=== PATIENT | male | born 1945 | race Caucasian/White ===

== ENCOUNTER 2021-05-08 17:48 | Inpatient (IN) ==
[2021-05-08] MEDS ORDERED: 0.9 % Sodium Chloride 1,000 ML IVC ONE (18:20)
[2021-05-08] MEDS ORDERED: Isovue-370 500 ML BOTTLE IVP ONE ×3 (18:21→18:28)
[2021-05-08] MEDS ORDERED: Ipratropium/Albuterol Neb 3 ML IH ONE (18:25)
[2021-05-08 18:29] LABS: Basophils % 0.1 %; Hematocrit 47.7 % (37.5-50.1); Hemoglobin 14.3 g/dL (12.9-16.9); Immature Granulocytes % 0.4 % (0-4); Lymphocytes # 0.7 K/mcL (0.6-4.6); Lymphocytes % 4.3 %; Mean Corpuscular Hemoglobin 31.4 pg (28.0-33.3); Mean Corpuscular Volume 104.8 fL (83.0-100.0); Mean Platelet Volume 10.9 fL (9.4-12.4); Monocytes # 1.1 K/mcL (0.0-1.3); Monocytes % 6.8 %; Neutrophils # 14.5 K/mcL (1.6-8.9); Nucleated Red Blood Cells 0.5 /100 WBC (0); Platelet Count 176 K/mcL (140-400); Red Blood Count 4.55 M/mcL (4.19-5.50); Red Cell Distribution Width 15.6 % (11.5-14.5); Segmented Neutrophils % 88.4 %; White Blood Count 16.4 K/mcL (4.3-11.1)
[2021-05-08] MEDS ORDERED: Ampicillin 2,000 MG in 0.9 % Sodium Chloride Mini Bag 100 ML IVPB ONE (18:29)
[2021-05-08] MEDS ORDERED: cefTRIAXone 2,000 MG in 0.9 % Sodium Chloride Mini Bag 100 ML IVPB ONE (18:29)
[2021-05-08] MEDS ORDERED: Acyclovir 600 MG in D5% in Water 250 ML IVPB ONE (18:30)
[2021-05-08 18:40] LABS: Prothrombin Time 11.3 Seconds (9.4-12.1)
[2021-05-08 18:42] LABS: Activated Partial Thrombo Time 27.5 Seconds (26.0-36.0)
[2021-05-08 18:52] LABS: Alanine Aminotransferase 51 Units/L (7-52); Albumin 4.3 g/dL (3.5-5.7); Albumin/Globulin Ratio 1.4 (1.1-2.2); Alkaline Phosphatase 97 Units/L (34-104); Aspartate Amino Transferase 52 Units/L (13-39); BUN/Creatinine Ratio 33 (6-26); Bilirubin,Direct 0.4 mg/dL (0.0-0.2); Bilirubin,Indirect 0.9 mg/dL (0.0-1.0); Bilirubin,Total 1.3 mg/dL (0.3-1.0); Blood Urea Nitrogen 104 mg/dL (8-23); Calcium 9.4 mg/dL (8.6-10.3); Carbon Dioxide 36 mEq/L (23-29); Chloride 97 mEq/L (98-107); Creatine Kinase 1727 Units/L (30-223); Globulin 3.1 g/dL (2.4-3.5); Glucose 155 mg/dL (70-105); Osmolality,Calculated 348 (280-300); Potassium 4.7 mEq/L (3.5-5.1); Sodium 151 mEq/L (136-145); Total Protein 7.4 g/dL (6.4-8.9); Troponin I 0.06 ng/mL (< 0.04); eGFR For African Americans 23 (> 60); eGFR For Non-African Americans 19 (> 60)
[2021-05-08 19:18] LABS: Amorphous Sediment,Urine Few per hpf (None-Few); Amphetamine Screen,Urine Negative ng/mL (Cutoff=1000); Bacteria,Urine Few per hpf (None-Few); Barbiturate Screen,Urine Negative ng/mL (Cutoff=200); Benzodiazepines Screen,Urine Negative ng/mL (Cutoff=200); Bilirubin,Urine Small (Negative); Blood,Urine Moderate (Negative); Cannabinoid Screen,Urine Negative ng/mL (Cutoff = 50); Clarity,Urine Turbid (Clear); Cocaine Screen,Urine Negative ng/mL (Cutoff= 300); Color,Urine Yellow (Yellow); Glucose,Urine (UA) Normal (Normal); Hyaline Casts,Urine Many per lpf (None Seen); Ketones,Urine Trace mg/dL (Negative); Leukocyte Esterase,Urine Large (Negative); Mucus,Urine Few per lpf (None-Few); Nitrite,Urine Negative (Negative); Opiate Screen,Urine Negative ng/mL (Cutoff=300); Phencyclidine Screen,Urine Negative ng/mL (Cutoff=25); Protein,Urine 30 mg/dL (Neg-Trace); Specific Gravity,Urine 1.017 (1.010-1.025); Squamous Epithelial Cell,Urine Few per hpf (None-Few); WBC,Urine 50-100 per hpf (0-3)
[2021-05-08 19:25] LABS: Thyroid Stimulating Hormone 2.118 mcIU/mL (0.340-5.600)
[2021-05-08 19:32] LABS: Ethanol < 10 mg/dL (Less than 10)
[2021-05-08 19:33] LABS: Influenza A PCR Negative (Negative); Influenza B PCR Negative (Negative); Resp. Syncytial Virus PCR Negative (Negative)
[2021-05-08 19:37] LABS: SARS-CoV-2 by PCR (In House) Negative (Negative)
[2021-05-08] MEDS ORDERED: 0.9 % Sodium Chloride 2,000 ML IV ONE (19:53)
[2021-05-08 20:02] LABS: Phosphorous 7.5 mg/dL (2.7-4.5)
[2021-05-08 21:10] LABS: ABG Base Excess 6 mEq/L (-2 to 3); ABG HCO3 36 mEq/L (21-27); ABG Oxygen Saturation 95 % (95-98); ABG PCO2 89 mmHg (35-45); ABG PH 7.22 pH Units (7.32-7.45); ABG PO2 92 mmHg (85-104); ABG TCO2 39 mEq/L (20-26)
[2021-05-08] MEDS ORDERED: Albuterol 2.5 MG/3 ML NEBULIZER IH ONE (21:26)
[2021-05-08] MEDS ORDERED: methylPREDNISolone 125 MG/2 ML VIAL IVP ONE (21:27)
[2021-05-08] MEDS ORDERED: Dexmedetomidine HCl 400 MCG/100 ML MLS IVC SCH (22:15)
[2021-05-08] MEDS ORDERED: Dexmedetomidine HCl 400 MCG/100 ML MLS IVC ONE (22:21)
[2021-05-08] MEDS ORDERED: 0.9 % Sodium Chloride 1,000 ML IV ONE (23:00)
[2021-05-09] MEDS ORDERED: Naloxone 0.4 MG/ML INJ IVP PRN (00:01)
[2021-05-09 00:11] LABS: ABG Base Excess 1 mEq/L (-2 to 3); ABG HCO3 34 mEq/L (21-27); ABG Oxygen Saturation 99 % (95-98); ABG PCO2 109 mmHg (35-45); ABG PO2 185 mmHg (85-104); ABG TCO2 37 mEq/L (20-26)
[2021-05-09] MEDS ORDERED: Perflutren Lipid Microsphere 1.3 ML in 0.9 % Sodium Chloride 8.7 ML IVP PRN (03:09)
[2021-05-09 05:19] LABS: Basophils % 0.2 %; Hematocrit 36.6 % (37.5-50.1); Hemoglobin 11.1 g/dL (12.9-16.9); Immature Granulocytes % 1.1 % (0-4); Immature Platelets 6.6 % (1.1-6.1); Lymphocytes # 1.1 K/mcL (0.6-4.6); Lymphocytes % 8.5 %; Mean Corpuscular HGB Conc 30.3 g/dL (31.6-35.5); Mean Corpuscular Hemoglobin 32.1 pg (28.0-33.3); Mean Corpuscular Volume 105.8 fL (83.0-100.0); Mean Platelet Volume 11.1 fL (9.4-12.4); Monocytes # 1.1 K/mcL (0.0-1.3); Neutrophils # 10.2 K/mcL (1.6-8.9); Platelet Count 132 K/mcL (140-400); Red Blood Count 3.46 M/mcL (4.19-5.50); Red Cell Distribution Width 15.6 % (11.5-14.5); Segmented Neutrophils % 81.2 %; White Blood Count 12.5 K/mcL (4.3-11.1)
[2021-05-09 05:25] LABS: Prothrombin Time 10.8 Seconds (9.4-12.1)
[2021-05-09 05:36] LABS: Acetaminophen < 10 mcg/mL (10-20); Salicylate < 2.5 mg/dL (15.0-30.0)
[2021-05-09 05:42] LABS: Albumin 3.2 g/dL (3.5-5.7); Albumin/Globulin Ratio 1.5 (1.1-2.2); Bilirubin,Total 0.7 mg/dL (0.3-1.0); Calcium 7.8 mg/dL (8.6-10.3); Globulin 2.2 g/dL (2.4-3.5); Magnesium 2.4 mg/dL (1.6-2.6); Phosphorous 5.6 mg/dL (2.7-4.5); Potassium 5.1 mEq/L (3.5-5.1); Total Protein 5.4 g/dL (6.4-8.9); Troponin I 0.05 ng/mL (< 0.04)
[2021-05-09 06:02] LABS: Folate 8.6 ng/mL (3.0-16.0)
[2021-05-09 06:05] LABS: Vitamin B12 > 1500 pg/mL (250-1100)
[2021-05-09] MEDS ORDERED: D5% in Water 1,000 ML IVC PRN (06:30)
[2021-05-09] MEDS ORDERED: *HR* Dextrose 50 % in Water (Syg) 50 ML SYRINGE IVP PRN (06:30)
[2021-05-09] MEDS ORDERED: Dextrose Gel 15 GM/37.5 ML TUBE PO PRN ×2 (06:30)
[2021-05-09] MEDS: D5% in Water 1,000 ML IVC SCH ×2 (06:55→13:38)
[2021-05-09] MEDS: Ampicillin 2,000 MG in 0.9 % Sodium Chloride Mini Bag 100 ML IVPB SCH ×4 (06:56→23:33)
[2021-05-09] MEDS ORDERED: Acyclovir 500 MG in D5% in Water 100 ML IVPB SCH (08:00)
[2021-05-09] MEDS: Ipratropium/Albuterol Neb 3 ML IH SCH ×6 (08:21→23:35)
[2021-05-09 08:54] LABS: ABG Base Excess 5 mEq/L (-2 to 3); ABG HCO3 32 mEq/L (21-27); ABG Oxygen Saturation 88 % (95-98); ABG PCO2 58 mmHg (35-45); ABG PH 7.35 pH Units (7.32-7.45); ABG PO2 59 mmHg (85-104); ABG TCO2 34 mEq/L (20-26); Blood Gas VT 450 cc
[2021-05-09] MEDS ORDERED: cefTRIAXone 2,000 MG in 0.9 % Sodium Chloride Mini Bag 100 ML IVPB SCH (09:00)
[2021-05-09 10:45] LABS: Hematocrit 33.9 % (37.5-50.1); Hemoglobin 10.2 g/dL (12.9-16.9)
[2021-05-09] MEDS: Budesonide/Formoterol 160/4.5 1 PUFF INH IH SCH ×2 (11:08→20:07)
[2021-05-09 11:20] LABS: Calcium 7.7 mg/dL (8.6-10.3); Troponin I 0.05 ng/mL (< 0.04); Uric Acid 11.4 mg/dL (2.3-7.6)
[2021-05-09] MEDS: Chlorhexidine Rinse 15 ML MOUTHWASH MM SCH ×2 (12:11→20:08)
[2021-05-09] MEDS: methylPREDNISolone 125 MG/2 ML VIAL IVP SCH ×3 (13:37→21:18)
[2021-05-09] MEDS ORDERED: Haloperidol Lactate 5 MG/ML VIAL IVP ONE ×2 (15:43)
[2021-05-09] MEDS ORDERED: *HR* LORazepam 2 MG/ML VIAL IVP PRN (17:07)
[2021-05-09] MEDS: cefTRIAXone 2,000 MG in 0.9 % Sodium Chloride Mini Bag 100 ML IVPB SCH (17:19)
[2021-05-09] MEDS: *HR* Heparin 5,000 UNIT/ML VIAL SQ SCH (17:27)
[2021-05-09] MEDS: *HR* LORazepam 2 MG/ML VIAL IVP PRN (17:48)
[2021-05-09] MEDS: Folic Acid 1 MG in 0.9 % Sodium Chloride 50 ML IVPB SCH (18:03)
[2021-05-09] MEDS: Thiamine (B-1) 200 MG in 0.9 % Sodium Chloride 50 ML IVPB SCH (18:06)
[2021-05-09 18:21] LABS: Sodium, Urine 19.6 mEq/L
[2021-05-09 20:01] LABS: ABG Base Excess 7 mEq/L (-2 to 3); ABG HCO3 40 mEq/L (21-27); ABG Oxygen Saturation 94 % (95-98); ABG PCO2 113 mmHg (35-45); ABG PH 7.15 pH Units (7.32-7.45); ABG PO2 97 mmHg (85-104); ABG TCO2 43 mEq/L (20-26)
[2021-05-09] MEDS ORDERED: Albumin 25% 25gram/100mL 25 GM/100 ML IV.SOLN IVPB ONE (20:01)
[2021-05-09 20:31] LABS: Red Cell Distribution Width 16.1 % (11.5-14.5)
[2021-05-09 20:33] LABS: Hematocrit 37.7 % (37.5-50.1); Hemoglobin 11.4 g/dL (12.9-16.9); Immature Platelets 7.3 % (1.1-6.1); Mean Corpuscular HGB Conc 30.2 g/dL (31.6-35.5); Mean Corpuscular Hemoglobin 32.3 pg (28.0-33.3); Mean Corpuscular Volume 106.8 fL (83.0-100.0); Red Blood Count 3.53 M/mcL (4.19-5.50); White Blood Count 13.4 K/mcL (4.3-11.1)
[2021-05-09 20:51] LABS: Calcium 8.1 mg/dL (8.6-10.3); Potassium 4.8 mEq/L (3.5-5.1)
[2021-05-09 22:13] LABS: ABG Base Excess 11 mEq/L (-2 to 3); ABG HCO3 39 mEq/L (21-27); ABG Oxygen Saturation 89 % (95-98); ABG PCO2 67 mmHg (35-45); ABG PH 7.37 pH Units (7.32-7.45); ABG PO2 61 mmHg (85-104); ABG TCO2 41 mEq/L (20-26)
[2021-05-10] MEDS: D5% in Water 1,000 ML IVC SCH ×3 (01:13→14:28)
[2021-05-10] MEDS: Ipratropium/Albuterol Neb 3 ML IH SCH ×5 (03:37→20:23)
[2021-05-10] MEDS: *HR* Heparin 5,000 UNIT/ML VIAL SQ SCH ×2 (05:43→17:13)
[2021-05-10] MEDS: methylPREDNISolone 125 MG/2 ML VIAL IVP SCH ×3 (05:49→21:29)
[2021-05-10] MEDS: cefTRIAXone 2,000 MG in 0.9 % Sodium Chloride Mini Bag 100 ML IVPB SCH (05:52)
[2021-05-10 06:28] LABS: Basophils % 0.2 %; Hematocrit 33.2 % (37.5-50.1); Nucleated Red Blood Cells 0.2 /100 WBC (0)
[2021-05-10 06:31] LABS: Immature Granulocytes % 1.1 % (0-4); Immature Platelets 5.9 % (1.1-6.1); Lymphocytes # 0.4 K/mcL (0.6-4.6); Lymphocytes % 3.5 %; Mean Corpuscular HGB Conc 30.1 g/dL (31.6-35.5); Mean Corpuscular Hemoglobin 31.5 pg (28.0-33.3); Mean Corpuscular Volume 104.7 fL (83.0-100.0); Mean Platelet Volume 10.9 fL (9.4-12.4); Monocytes # 0.4 K/mcL (0.0-1.3); Monocytes % 3.6 %; Neutrophils # 10.5 K/mcL (1.6-8.9); Platelet Count 117 K/mcL (140-400); Red Blood Count 3.17 M/mcL (4.19-5.50); Red Cell Distribution Width 16.4 % (11.5-14.5); Segmented Neutrophils % 91.6 %; White Blood Count 11.5 K/mcL (4.3-11.1)
[2021-05-10 06:47] LABS: Albumin 3.6 g/dL (3.5-5.7); Albumin/Globulin Ratio 1.7 (1.1-2.2); Bilirubin,Total 0.6 mg/dL (0.3-1.0); Calcium 8.7 mg/dL (8.6-10.3); Globulin 2.1 g/dL (2.4-3.5); Magnesium 2.6 mg/dL (1.6-2.6); Potassium 4.3 mEq/L (3.5-5.1); Total Protein 5.7 g/dL (6.4-8.9)
[2021-05-10] MEDS: Chlorhexidine Rinse 15 ML MOUTHWASH MM SCH ×2 (07:54→19:54)
[2021-05-10] MEDS: Ampicillin 2,000 MG in 0.9 % Sodium Chloride Mini Bag 100 ML IVPB SCH (07:54)
[2021-05-10] MEDS: Budesonide/Formoterol 160/4.5 1 PUFF INH IH SCH ×2 (07:57→20:25)
[2021-05-10] MEDS: Thiamine (B-1) 200 MG in 0.9 % Sodium Chloride 50 ML IVPB SCH (08:09)
[2021-05-10] MEDS: Folic Acid 1 MG in 0.9 % Sodium Chloride 50 ML IVPB SCH (08:10)
[2021-05-10] MEDS ORDERED: Acyclovir 500 MG in D5% in Water 100 ML IVPB SCH (09:00)
[2021-05-10] MEDS: *HR* LORazepam 2 MG/ML VIAL IVP PRN ×3 (09:34→22:57)
[2021-05-10] MEDS: Acyclovir 500 MG in D5% in Water 100 ML IVPB SCH ×2 (09:34→19:46)
[2021-05-10] MEDS: AMPICILLIN IVPB SCH ×2 (16:09→23:39)
[2021-05-10] MEDS: WATER IVPB SCH ×2 (16:09→23:39)
[2021-05-10] MEDS: D5 IVPB SCH ×2 (16:09→23:39)
[2021-05-10] MEDS: cefTRIAXone 2,000 MG in Water for inj. (sterile) 20 ML IVP SCH (17:12)
[2021-05-10 17:39] LABS: BUN/Creatinine Ratio 35 (6-26); Blood Urea Nitrogen 44 mg/dL (8-23); Calcium 8.6 mg/dL (8.6-10.3); Carbon Dioxide 42 mEq/L (23-29); Chloride 111 mEq/L (98-107); Glucose 250 mg/dL (70-105); Osmolality,Calculated 340 (280-300); Sodium 155 mEq/L (136-145); Vancomycin,Random 7 mcg/mL; eGFR For African Americans > 60 (> 60); eGFR For Non-African Americans 55 (> 60)
[2021-05-11] MEDS: Ipratropium/Albuterol Neb 3 ML IH SCH ×7 (00:08→23:57)
[2021-05-11] MEDS: D5% in Water 1,000 ML IVC SCH ×2 (01:03→17:26)
[2021-05-11] MEDS: *HR* LORazepam 2 MG/ML VIAL IVP PRN ×3 (02:02→19:34)
[2021-05-11] MEDS: cefTRIAXone 2,000 MG in Water for inj. (sterile) 20 ML IVP SCH (05:23)
[2021-05-11] MEDS: methylPREDNISolone 125 MG/2 ML VIAL IVP SCH ×2 (05:26→14:45)
[2021-05-11] MEDS: *HR* Heparin 5,000 UNIT/ML VIAL SQ SCH ×2 (05:27→17:33)
[2021-05-11 06:16] LABS: Basophils % 0.2 %; Hemoglobin 9.4 g/dL (12.9-16.9); Immature Granulocytes % 0.7 % (0-4); Lymphocytes # 0.7 K/mcL (0.6-4.6); Lymphocytes % 5.2 %; Mean Corpuscular HGB Conc 29.4 g/dL (31.6-35.5); Mean Corpuscular Hemoglobin 32.2 pg (28.0-33.3); Mean Corpuscular Volume 109.6 fL (83.0-100.0); Monocytes # 0.7 K/mcL (0.0-1.3); Monocytes % 5.7 %; Neutrophils # 11.2 K/mcL (1.6-8.9); Nucleated Red Blood Cells 0.2 /100 WBC (0); Red Blood Count 2.92 M/mcL (4.19-5.50); Red Cell Distribution Width 16.7 % (11.5-14.5); Segmented Neutrophils % 88.2 %; White Blood Count 12.7 K/mcL (4.3-11.1)
[2021-05-11 06:18] LABS: Platelet Count 94 K/mcL (140-400)
[2021-05-11] MEDS: Budesonide/Formoterol 160/4.5 1 PUFF INH IH SCH ×2 (07:38→20:29)
[2021-05-11] MEDS: Folic Acid 1 MG in 0.9 % Sodium Chloride 50 ML IVPB SCH (07:59)
[2021-05-11] MEDS: Chlorhexidine Rinse 15 ML MOUTHWASH MM SCH ×2 (07:59→19:31)
[2021-05-11] MEDS: Thiamine (B-1) 200 MG in 0.9 % Sodium Chloride 50 ML IVPB SCH (08:00)
[2021-05-11] MEDS: WATER IVPB SCH ×2 (08:01→14:45)
[2021-05-11] MEDS: AMPICILLIN IVPB SCH ×2 (08:01→14:45)
[2021-05-11] MEDS: D5 IVPB SCH ×2 (08:01→14:45)
[2021-05-11 09:08] LABS: BUN/Creatinine Ratio 29 (6-26); Blood Urea Nitrogen 31 mg/dL (8-23); Calcium 8.6 mg/dL (8.6-10.3); Carbon Dioxide 39 mEq/L (23-29); Chloride 108 mEq/L (98-107); Creatine Kinase 353 Units/L (30-223); Glucose 235 mg/dL (70-105); Magnesium 2.3 mg/dL (1.6-2.6); Osmolality,Calculated 328 (280-300); Phosphorous 1.5 mg/dL (2.7-4.5); Potassium 3.8 mEq/L (3.5-5.1); Sodium 152 mEq/L (136-145); eGFR For African Americans > 60 (> 60); eGFR For Non-African Americans > 60 (> 60)
[2021-05-11] MEDS: Acyclovir 500 MG in D5% in Water 100 ML IVPB SCH (10:15)
[2021-05-11] MEDS ORDERED: AMPICILLIN IVPB SCH (14:00)
[2021-05-11] MEDS ORDERED: D5 IVPB SCH (14:00)
[2021-05-11] MEDS ORDERED: WATER IVPB SCH (14:00)
[2021-05-11] MEDS: cefTRIAXone 2,000 MG in 0.9 % Sodium Chloride Mini Bag 100 ML IVPB SCH (18:07)
[2021-05-11] MEDS ORDERED: 0.9 % Sodium Chloride 500 ML IVC ONE (21:48)
[2021-05-11 23:07] LABS: Hematocrit 19.3 % (37.5-50.1)
[2021-05-11] MEDS ORDERED: 0.9 % Sodium Chloride 1,000 ML ONE ×2 (23:19→23:40)
[2021-05-11 23:20] LABS: Hemoglobin 5.8 g/dL (12.9-16.9)
[2021-05-11] MEDS ORDERED: 0.9 % Sodium Chloride 250 ML ONE (23:51)
[2021-05-12] MEDS ORDERED: 0.9 % Sodium Chloride 1,000 ML ONE (00:11)
[2021-05-12 00:36] LABS: ABG Base Excess 6 mEq/L (-2 to 3); ABG HCO3 31 mEq/L (21-27); ABG Oxygen Saturation 92 % (95-98); ABG PCO2 50 mmHg (35-45); ABG PO2 65 mmHg (85-104); ABG TCO2 33 mEq/L (20-26)
[2021-05-12] MEDS ORDERED: 0.9 % Sodium Chloride 1,000 ML IVC ONE (00:42)
[2021-05-12] MEDS: WATER IVPB SCH ×3 (00:56→09:09)
[2021-05-12] MEDS: D5 IVPB SCH ×3 (00:56→09:09)
[2021-05-12] MEDS: AMPICILLIN IVPB SCH ×3 (00:56→09:09)
[2021-05-12] MEDS: Acyclovir 500 MG in D5% in Water 100 ML IVPB SCH ×2 (00:56→09:46)
[2021-05-12] MEDS: Pantoprazole 40 MG VIAL IVP SCH ×2 (01:02→05:27)
[2021-05-12] MEDS: methylPREDNISolone 125 MG/2 ML VIAL IVP SCH ×2 (01:02→05:28)
[2021-05-12] MEDS: D5% in Water 1,000 ML IVC SCH (01:12)
[2021-05-12] MEDS: Norepinephrine 4 MG/254 ML IV.SOLN IVC SCH ×2 (01:22→09:35)
[2021-05-12 01:43] LABS: Hemoglobin 6.5 g/dL (12.9-16.9); Mean Platelet Volume 10.9 fL (9.4-12.4)
[2021-05-12 01:45] LABS: Hematocrit 21.3 % (37.5-50.1); Immature Platelets 7.2 % (1.1-6.1); Mean Corpuscular HGB Conc 30.5 g/dL (31.6-35.5); Mean Corpuscular Hemoglobin 31.1 pg (28.0-33.3); Mean Corpuscular Volume 101.9 fL (83.0-100.0); Red Blood Count 2.09 M/mcL (4.19-5.50); Red Cell Distribution Width 16.9 % (11.5-14.5)
[2021-05-12] MEDS ORDERED: Isovue-370 500 ML BOTTLE IVP ONE (02:11)
[2021-05-12] MEDS ORDERED: 0.9 % Sodium Chloride 250 ML ONE (02:44)
[2021-05-12] MEDS: Ipratropium/Albuterol Neb 3 ML IH SCH ×2 (04:25→07:25)
[2021-05-12 04:35] LABS: Basophils % 0.1 %; Segmented Neutrophils % 88.4 %
[2021-05-12 04:37] LABS: Hematocrit 27.9 % (37.5-50.1); Hemoglobin 8.8 g/dL (12.9-16.9); Immature Granulocytes % 1.6 % (0-4); Immature Platelets 8.5 % (1.1-6.1); Lymphocytes # 0.6 K/mcL (0.6-4.6); Lymphocytes % 3.9 %; Mean Corpuscular HGB Conc 31.5 g/dL (31.6-35.5); Mean Corpuscular Hemoglobin 30.7 pg (28.0-33.3); Mean Corpuscular Volume 97.2 fL (83.0-100.0); Mean Platelet Volume 11.2 fL (9.4-12.4); Monocytes # 0.9 K/mcL (0.0-1.3); Neutrophils # 12.9 K/mcL (1.6-8.9); Nucleated Red Blood Cells 0.4 /100 WBC (0); Red Blood Count 2.87 M/mcL (4.19-5.50); Red Cell Distribution Width 15.9 % (11.5-14.5); White Blood Count 14.6 K/mcL (4.3-11.1)
[2021-05-12 04:41] LABS: Platelet Count 88 K/mcL (140-400)
[2021-05-12 04:51] LABS: BUN/Creatinine Ratio 31 (6-26); Blood Urea Nitrogen 29 mg/dL (8-23); Carbon Dioxide 33 mEq/L (23-29); Chloride 112 mEq/L (98-107); Glucose 214 mg/dL (70-105); Osmolality,Calculated 320 (280-300); Potassium 3.6 mEq/L (3.5-5.1); Sodium 149 mEq/L (136-145); eGFR For African Americans > 60 (> 60); eGFR For Non-African Americans > 60 (> 60)
[2021-05-12] MEDS: cefTRIAXone 2,000 MG in 0.9 % Sodium Chloride Mini Bag 100 ML IVPB SCH (05:27)
[2021-05-12] MEDS: Budesonide/Formoterol 160/4.5 1 PUFF INH IH SCH (07:25)
[2021-05-12] MEDS ORDERED: Dexmedetomidine HCl 400 MCG/100 ML MLS IVC SCH (09:00)
[2021-05-12] MEDS: Chlorhexidine Rinse 15 ML MOUTHWASH MM SCH ×2 (09:28→20:24)
[2021-05-12] MEDS ORDERED: *HR* LORazepam 2 MG/ML VIAL IVP PRN (10:28)
[2021-05-12] MEDS: *HR* LORazepam 2 MG/ML VIAL IVP PRN ×4 (12:23→23:15)
[2021-05-12] MEDS: Morphine Sulfate 2 MG/ML SYRINGE IVP PRN ×4 (12:23→23:14)
[2021-05-12] MEDS ORDERED: Scopolamine Patch 1.5 MG PATCH.TD72 TD SCH (13:45)
[2021-05-12] MEDS ORDERED: Atropine Sulfate 1% 40 DROP/2 ML BOTTLE SL PRN (13:49)
[2021-05-12 19:42] VITALS: BP 83/49; PULSE 101; TEMP 97.9; O2SAT 86
[2021-05-13] MEDS: Morphine Sulfate 2 MG/ML SYRINGE IVP PRN ×2 (01:22→04:09)
[2021-05-13] MEDS: *HR* LORazepam 2 MG/ML VIAL IVP PRN ×2 (01:23→04:09)
== END 2021-05-13 05:28 | disposition expired | DRG 871 ==
LOC: EMEROOARM 17:48 → CDU 17:48 → SUATTDRO 23:36 → 2ANU 05-09 13:49 → 2NNU 05-09 21:07 → 2NENU 05-11 17:12 → 2NNU 05-12 04:11 → 2ANU 05-12 12:10
PROVIDERS: ADMIT Internal Medicine; ATTEND Family Medicine